=== PATIENT | female | born 1970 | race Caucasian/White ===

== ENCOUNTER 2020-03-03 11:53 | Outpatient (CLI) | payer BC, SELFPAY ==
--- NOTE | 2020-03-03 12:28 | MM_ITS ---
WS: [id number] BILATERAL DIGITAL DIAGNOSTIC MAMMOGRAM MAMMOGRAPHY WITH CAD CLINICAL INFORMATION: RIGHT BREAST LUMP COMPARISON: May 29, 2016 TECHNIQUE: Bilateral CC, MLO, and ML views. FINDINGS: The breasts are composed of heterogeneous fibroglandular density, which can limit the detection of sm all underlying mass lesions. Palpable marker upper outer right breast with partially obscured nodular density measuring 10 mm. Ult rasound is pending. Left breast is unchanged in appearance. ULTRASOUND BREAST RIGHT TECHNIQUE: Ultrasound right breast focused area of concern. CLINICAL INFORMATION: RIGHT BREAST LUMP COMPARISON: None. FINDINGS: Ultrasound right breast at the 10:00 position near the palpable marker. There is a well-circumscribed hypoechoic solid lesion measuring 1.7 x 0.7 x 1.2 cm in the superficial breast parenchyma. This is n onspecific but most likely represents fibroadenoma. Additional similar-appearing lesion adjacent tin uring 1.7 x 0.9 x 1.3 cm with central cystic change also nonspecific but suspicious for cystic fibroa denoma. CONSIDERING THE PALPABLE NATURE OF THESE LESIONS RECOMMEND FURTHER EVALUATION WITH ULTRASOUND-GUIDED BREAST BIOPSY OR SURGICAL EXCISION. MM/[place] [id number] IMPRESSION: BI-RADS: 4A-Suspicious: Low FOLLOW UP: See Report
--- NOTE | 2020-03-03 12:38 | US_ITS ---
WS: [id number] BILATERAL DIGITAL DIAGNOSTIC MAMMOGRAM MAMMOGRAPHY WITH CAD CLINICAL INFORMATION: RIGHT BREAST LUMP COMPARISON: May 29, 2016 TECHNIQUE: Bilateral CC, MLO, and ML views. FINDINGS: The breasts are composed of heterogeneous fibroglandular density, which can limit the detection of sm all underlying mass lesions. Palpable marker upper outer right breast with partially obscured nodular density measuring 10 mm. Ult rasound is pending. Left breast is unchanged in appearance. ULTRASOUND BREAST RIGHT TECHNIQUE: Ultrasound right breast focused area of concern. CLINICAL INFORMATION: RIGHT BREAST LUMP COMPARISON: None. FINDINGS: Ultrasound right breast at the 10:00 position near the palpable marker. There is a well-circumscribed hypoechoic solid lesion measuring 1.7 x 0.7 x 1.2 cm in the superficial breast parenchyma. This is n onspecific but most likely represents fibroadenoma. Additional similar-appearing lesion adjacent tin uring 1.7 x 0.9 x 1.3 cm with central cystic change also nonspecific but suspicious for cystic fibroa denoma. CONSIDERING THE PALPABLE NATURE OF THESE LESIONS RECOMMEND FURTHER EVALUATION WITH ULTRASOUND-GUIDED BREAST BIOPSY OR SURGICAL EXCISION. US/US breast RT limited* [id number] IMPRESSION: BI-RADS: 4A-Suspicious: Low FOLLOW UP: See Report
== END 2020-03-03 11:54 | disposition home or self-care (01) ==
LOC: RADSHAW 11:54
PROVIDERS: Family Provider Electrodiagnostic Medicine; PCP Electrodiagnostic Medicine; Visit Provider Obstetrics & Gynecology
DX: N63.10 Unspecified lump in the right breast, unspecified quadrant (principal)
CPT/HCPCS: 76642; 77065; 77066

== ENCOUNTER → 2021-09-30 10:23 | Outpatient (BNVA) | payer BC, SELFPAY | PROVIDERS: Family Provider Electrodiagnostic Medicine; PCP Electrodiagnostic Medicine; Visit Provider Nurse Practitioner | DX: J02.9 Acute pharyngitis, unspecified (principal) | CPT/HCPCS: 87880 ==

== ENCOUNTER 2021-10-10 14:23 | Outpatient (CLI) | payer BC, SELFPAY ==
--- NOTE | 2021-10-10 14:32 | MR_ITS ---
WS: [id number] MRI HEAD WITHOUT CONTRAST TECHNIQUE: Sagittal T1, T2 axial, T2 axial FLAIR, axial and coronal T1 images, axial susceptibility w eighted imaging, axial diffusion weighted images, and coronal T2 images were obtained. Patient refused IV contrast. CLINICAL INFORMATION: ROGELIO EXOPHTHALMOS;FATIGUE;MIGRAINE;HAIR LOSS;PARESTHESIA COMPARISON: None. FINDINGS: No evidence of restricted diffusion to suggest acute ischemia. Ventricular system and basal cisterns are patent. No suspicious intracranial signal abnormalities. Normal winkler-white differentiation. Marjan l posterior fossa. Normal vascular flow voids at the skull base. No extra axial fluid collections. No evidence of mass or mass effect. Paranasal sinuses and mastoid air cells are well aerated. Bilateral orbital proptosis. No hemosiderin on the susceptibly weighted images. Normal optic chiasm and pituitary infundibulum. Temporal lobes a nd hippocampal formations are normal in appearance. Normal cavernous sinuses and Meckel's cave. MR/MR head wo con* [id number] IMPRESSION: 1. No evidence of restricted diffusion to suggest acute ischemia. 2. No suspicious intracranial signal abnormalities. Normal winkler-white differen tiation. 3. Temporal lobes and hippocampal formations are normal in appearance. 4. Bilateral orbital proptosis. 5. No hemosiderin on susceptibly weighted images. 6. No other significant findings.
== END 2021-10-10 14:24 | disposition home or self-care (01) ==
LOC: RADSHAW 14:27
PROVIDERS: PCP Electrodiagnostic Medicine; Visit Provider Electrodiagnostic Medicine
DX: H05.20 Unspecified exophthalmos (principal); R53.83 Other fatigue; L65.9 Nonscarring hair loss, unspecified; G43.909 Migraine, unspecified, not intractable, without status migrainosus; R20.2 Paresthesia of skin; H05.223 Edema of bilateral orbit
CPT/HCPCS: 70551

== ENCOUNTER → 2022-08-20 08:08 | Outpatient (BNVA) | payer BC, SELFPAY | PROVIDERS: PCP Family Medicine; Visit Provider Family Medicine | DX: R53.83 Other fatigue (principal); R68.83 Chills (without fever); R05.9 Cough, unspecified; Z56.6 Other physical and mental strain related to work; E55.9 Vitamin D deficiency, unspecified | CPT/HCPCS: 80053; 82306; 84443; 85025; 86140 ==

== ENCOUNTER → 2022-10-08 08:28 | Outpatient (BNVA) | payer BC, SELFPAY | PROVIDERS: PCP Family Medicine; Visit Provider Family Medicine | DX: E55.9 Vitamin D deficiency, unspecified (principal); R05.9 Cough, unspecified; R53.83 Other fatigue; R60.9 Edema, unspecified | CPT/HCPCS: 80053; 82607; 83001; 83002; 84436; 84443; 84481; 85025; 86140 ==

== ENCOUNTER → 2023-10-29 09:40 | Outpatient (BNVA) | payer BC, SELFPAY | PROVIDERS: PCP Family Medicine; Visit Provider Family Medicine | DX: Z51.81 Encounter for therapeutic drug level monitoring (principal); Z13.220 Encounter for screening for lipoid disorders; R53.81 Other malaise; R53.83 Other fatigue; E55.9 Vitamin D deficiency, unspecified | CPT/HCPCS: 80053; 80061; 82306; 84439; 84443; 85025 ==

== ENCOUNTER → 2024-01-01 15:57 | Outpatient (BNVA) | payer BC, SELFPAY | PROVIDERS: PCP Family Medicine; Visit Provider Family Medicine | DX: R53.81 Other malaise (principal); R53.83 Other fatigue; M25.50 Pain in unspecified joint; R23.2 Flushing | CPT/HCPCS: 83001; 85651; 86038; 86141; 86431 ==

== ENCOUNTER → 2025-04-19 09:59 | Outpatient (BNVA) | payer BC, SELFPAY | PROVIDERS: PCP Family Medicine; Visit Provider Family Medicine | DX: E03.9 Hypothyroidism, unspecified (principal); R03.0 Elevated blood-pressure reading, without diagnosis of hypertension; E55.9 Vitamin D deficiency, unspecified; Z00.00 Encounter for general adult medical examination without abnormal findings; R53.83 Other fatigue; F41.9 Anxiety disorder, unspecified | CPT/HCPCS: 80053; 80061; 82306; 82533; 83001; 83002; 84443; 85025 ==